=== PATIENT | male | born 1990 | race Hispanic/Latino ===

== ENCOUNTER 2017-07-14 14:59 | Outpatient (CLI) | payer OTHER ==
--- NOTE | 2017-07-14 15:52 | ULT ---
TESTICULAR ULTRASOUND WITH DOPPLER: History: Left sided testicular pain x 2 weeks. Comparison: None. Technique: Grayscale, color flow, doppler imaging, and spectral waveform analysis was performed of th e right and left testicle. FINDINGS: The right testicle has a slightly homogeneous appearance. No masses. Right testicle measures 3.3 x 2. 7 x 4.9 cm. Right epididymis measures 1.2 x 0.9 cm. Trace amount of fluid in the right hemiscrotum. The left testicle has a homogeneous echotexture. No mass. Left testicle measures 3.3 x 2.1 x 4.2 cm. Left epididymis measures 1.3 x 1.1 cm. There are vessels in the left hemiscrotum/groin which increase upon valsalva suggesting vericocele. A small amount of fluid in the left hemiscrotum. Testicular Doppler: There is increased vascular flow in the epididymal tail. The possibility of epididymitis in the tail of the epididymis cannot be complete excluded. There is symmetric vascular flow to both testicles. IMPRESSION: 1. Questionable left epididymitis. 2. Left varicocele. POS: [facility]
== END 2017-07-14 15:00 | disposition home or self-care (01) ==
LOC: SCSULT 14:59
PROVIDERS: ATTEND Physician Assistant
DX: N50.812 Left testicular pain (principal); I86.1 Scrotal varices
CPT/HCPCS: 76870; 93976

== ENCOUNTER 2021-08-13 14:20 | Outpatient (CLI) | payer BC | END 2021-08-13 14:21 | disposition home or self-care (01) | LOC: SCSMRI 14:20 | PROVIDERS: ATTEND Family Medicine | DX: M23.92 Unspecified internal derangement of left knee (principal); M94.262 Chondromalacia, left knee; M67.462 Ganglion, left knee ==

== ENCOUNTER 2021-09-04 08:58 | Outpatient (CLI) | payer BC ==
[2021-09-04 09:51] LABS: #Eosinphils 0.2 10x3/uL (0.0-0.5); #Monocytes 0.4 10x3/uL (0.0-1.1); #Neutrophils 2.3 10x3/uL (1.5-8.4); %Basophils 0.6 % (0.0-2.0); %Lymphocytes 44.8 % (18.0-47.0); %Neutrophils 43.4 % (40.0-75.0); Hemoglobin 15.6 g/dL (13.5-17.5); Mean Corpuscular HGB CONC 34.2 g/dL (32.0-36.0); Mean Corpuscular Hemoglobin 30.8 pg (27.0-33.0); Mean Corpuscular Volume 90.1 fl (81.2-95.1); Mean Platelet Volume 9.5 fl (7.4-10.4); Platelet Count 226 10x3/uL (150-450); Red Blood Cell (RBC) Count 5.06 10x6/uL (4.32-5.72); White Blood Cell (WBC) Count 5.3 10x3/uL (3.5-10.5)
[2021-09-04 18:42] LABS: SARS-CoV-2 PCR by NAA Not Detected (NotDetected)
== END 2021-09-04 08:59 | disposition home or self-care (01) ==
LOC: LABBT 08:58
PROVIDERS: ATTEND Orthopaedic Surgery
DX: Z01.812 Encounter for preprocedural laboratory examination (principal); M23.92 Unspecified internal derangement of left knee; Z20.822 Contact with and (suspected) exposure to COVID-19
CPT/HCPCS: 85025; U0003; U0005

== ENCOUNTER 2021-09-05 06:06 | Day surgery (SDC) | payer OTHER, BC ==
[2021-09-04 10:04] VITALS: BMI 26.7
[2021-09-05] MEDS ORDERED: fentaNYL Citrate/PF 100 MCG/2 ML SYRINGE ONE (06:46)
[2021-09-05] MEDS ORDERED: Sodium Chloride 0.9% 100 ML ONE (07:21)
[2021-09-05] MEDS ORDERED: CEFAZOLIN 2 GM VIAL ONE (07:21)
[2021-09-05] MEDS ORDERED: Midazolam HCl 2 mg/2 ml Vial ONE (07:31)
[2021-09-05] MEDS ORDERED: Dexamethasone 20 MG/5 ML VIAL ONE (07:52)
[2021-09-05] MEDS ORDERED: Ketorolac Tromethamine 30 MG/ML VIAL ONE (07:52)
[2021-09-05] MEDS ORDERED: Bupivacaine PF 0.5% 30 ML VIAL ONE (07:52)
[2021-09-05] MEDS ORDERED: Ondansetron PF 4 MG/2 ML Vial ONE (07:52)
[2021-09-05] MEDS ORDERED: Lidocaine 1% PF 5 ML VIAL ONE (07:52)
[2021-09-05] MEDS ORDERED: PROPOFOL 200 MG/20 ML VIAL ONE (07:52)
[2021-09-05] MEDS ORDERED: Lidocaine 2% w/Epinephrine 1:200K 20 ML VIAL ONE (07:52)
[2021-09-05] MEDS ORDERED: Fentanyl 100 MCG/2 ML VIAL ONE ×2 (08:49→09:03)
[2021-09-05] MEDS ORDERED: HYDROcodone/Acetaminophen 5/325 mg Tablet ONE (09:28)
[2021-09-05] MEDS ORDERED: Morphine 2 MG/ML VIAL ONE (09:50)
== END 2021-09-05 11:06 | disposition home or self-care (01) ==
LOC: SDC 06:06
PROVIDERS: ATTEND Orthopaedic Surgery
PROC: 0SBD4ZZ Excision of Left Knee Joint, Percutaneous Endoscopic Approach (ICD-10-PCS; principal; 2021-09-05)
DX: M23.92 Unspecified internal derangement of left knee (principal); Z87.891 Personal history of nicotine dependence; V89.9XXA Person injured in unspecified vehicle accident, initial encounter; X50.1XXA Overexertion from prolonged static or awkward postures, initial encounter; Y99.0 Civilian activity done for income or pay
CPT/HCPCS: J1100; J1885; J2250; J2270; J2405; J2704; J3010; J3490; S0020